=== PATIENT | male | born 1960 | race Caucasian/White ===

== ENCOUNTER 2024-02-08 13:57 | Outpatient (CLI) | payer OTHER, SELFPAY ==
--- NOTE | ~2024-02-08 | XR_ITS ---
XR hip BI 2V w AP pelvis Ordering provider: Marisa Yuen, PAC History: . M25.551 - Pain in right hip . Comparison: None. FINDINGS: BONES: No acute fracture or dislocation. HIP JOINT SPACES: Normal. SACROILIAC JOINT SPACES/LUMBAR SPINE: The sacroiliac joint spaces are normal. Mild degenerative baocn es of the visualized lower lumbar spine. PUBIC SYMPHYSIS: Normal. SOFT TISSUES: Normal. IMPRESSION: No acute osseous abnormality of the bilateral hips and pelvis. Reviewed, dictated and finalized at location A.
--- NOTE | ~2024-02-08 | XR_ITS ---
3 VIEWS LUMBAR SPINE Ordering provider: Marisa Yuen, PAC History: . BILATERAL HIP AND LOW BACK PAIN, NKI . Comparison: None. FINDINGS: VERTEBRAL BODIES: No visible fracture or subluxation. DISK SPACES: Narrowing of the disc L5-S1. SOFT TISSUES: Normal. Aortic calcifications. IMPRESSION: No acute osseous abnormality lumbar spine. Degenerative disc disease at the level of L5-S1. Reviewed, dictated and finalized at location A.
[2024-02-08 14:35] LABS: Basophils Absolute Auto 0.1 K/mm3 (0.0-0.1); Basophils Percent Auto 0.6 % (0.2-1.2); Eosinophils Absolute Auto 0.3 K/mm3 (0-0.3); Eosinophils Percent Auto 3.2 % (0-4.4); Hematocrit 43.2 % (42.0-52.0); Hemoglobin 15.5 g/dL (14.0-18.0); Immature Granulocyte Absolute 0.02 K/mm3 (0.00-0.031); Immature Granulocyte Percent A 0.3 % (0-0.5); Lymphocytes Absolute Auto 2.49 K/mm3 (0.9-3.2); Lymphocytes Percent Auto 31.8 % (18.3-44.2); Mean Corpuscular HGB Conc 35.9 g/dl (32-36); Mean Corpuscular Hemoglobin 32.7 pg (26-34); Mean Corpuscular Volume 91.1 fl (80-100); Mean Platelet Volume 9.4 fl (7.4-10.4); Monocytes Absolute Auto 0.8 K/mm3 (0.1-0.6); Monocytes Percent Auto 10.1 % (2.6-8.5); Neutrophils Absolute Auto 4.2 K/mm3 (1.3-6.7); Platelet Count Result 274 k/mm3 (150-375); Red Blood Count 4.74 M/mm3 (4.6-6.20); Red Cell Distribution Width 12.6 % (11.5-14.5); White Blood Count 7.8 K/mm3 (4.5-10.0)
[2024-02-08 14:54] LABS: LDL Cholesterol Direct 116 mg/dL
[2024-02-08 15:54] LABS: Alanine Aminotransferase 26 U/L (6-50); Albumin Level 4.4 g/dL (3.5-5.1); Alkaline Phosphatase 45 U/L (38-126); Anion Gap 10 mmol/L (4-12); Aspartate Amino Transferase 26 U/L (17-59); Bilirubin,Total 0.7 mg/dL (0.2-1.3); Blood Urea Nitrogen 17 mg/dL (9-20); Calcium 9.2 mg/dL (8.4-10.2); Carbon Dioxide 25 mmol/L (22-30); Chloride 97 mmol/L (98-107); Cholesterol 201 mg/dL (0-200); Estimated Glomerular Filt Rate > 60; Glucose 92 mg/dL (65-110); HDL Direct 58 mg/dL; Sodium 132 mmol/L (137-145); Triglycerides 89 mg/dL (<150)
[2024-02-08 16:11] LABS: Potassium 4.1 mmol/L (3.4-5.0)
== END 2024-02-08 13:58 | disposition home or self-care (01) ==
LOC: ANHLAB 13:59
PROVIDERS: PCP Family Medicine; Visit Provider Physician Assistant Medical
DX: E78.5 Hyperlipidemia, unspecified (principal); I10 Essential (primary) hypertension; Z12.5 Encounter for screening for malignant neoplasm of prostate; Z13.29 Encounter for screening for other suspected endocrine disorder; M25.551 Pain in right hip; M25.552 Pain in left hip; M54.50 Low back pain, unspecified
CPT/HCPCS: 36415; 72100; 73521; 80053; 80061; 84153; 84443; 85025; G0103

== ENCOUNTER 2024-03-30 07:59 | Outpatient (CLI) | payer OTHER, SELFPAY | END 2024-03-30 08:00 | disposition home or self-care (01) | LOC: ANHAUDIO 08:01 | PROVIDERS: PCP Family Medicine; Visit Provider Otolaryngology | DX: H90.0 Conductive hearing loss, bilateral (principal); Z90.89 Acquired absence of other organs; H74.23 Discontinuity and dislocation of ear ossicles, bilateral | CPT/HCPCS: 92557; 92567 ==

== ENCOUNTER 2024-08-18 02:08 | Day surgery (SDC) | payer OTHER, SELFPAY ==
[2024-08-10 10:11] VITALS: BMI 27.3
--- OUTSIDE RECORDS SUMMARY | 2024-08-18 02:11 | XMS_ITS | Clinical Summary ---
Author Organization [facility] Address Formerly [facility] [place] [address] Care Team Providers Care Billboard Installer Name Role Phone Unavailable Primary Care Provider Unavailabl e Social History Tobacco Use Types Packs/Day Years Used Date Smoking Tobacco: Never Assessed Sex and Gender Information Value Date Recorded Sex Assigned at Not on file Legal Sex Male 8:22 PM CDT Gender Identity Not on file Sexual Orientation Not on file Plan of Treatment Health Maintenance Due Date Last Done Comments Colorectal Cancer Screening Colonoscopy (10 Years) 1962 Annual Physical 1965 Hepatitis C 1980 DTaP, Tdap and Td Vaccines ( 1 - Tdap) 1981 Zoster Vaccines (1 of 2) 2012 COVID-19 Vaccine ( - 2023-2 5 season) 2024 Influenza Adult (#1) 2024 RSV Immunization or 60+ Years (1 - 1-dose 75+ series) 2037 Meningococcal B Vaccine Aged Out No l onger eligible based on patient's age to complete this topic Meningococcal Vaccine Aged Out No major celso eligible based on patient's age to complete this topic Pneumococcal Vaccine: Pediat rics (0 to 5 Years) and At-Risk Patients (6 to 64 Years) Aged Out No longer eligible b ased on patient's age to complete this topic RSV Immunizations Under 20 Months Aged Out No longer eligible based on patient's age to complete this topic
--- OUTSIDE RECORDS SUMMARY | 2024-08-18 02:11 | XMS_ITS | Referral Summary ---
Author Organization [facility] Address [address] [place] [phone] Care Team Providers Care Shampoo Technician Name Role Phone Marshall Mark MD Primary Care Provider [phone] Encounters Date Type Department Care Team Description 08/16/2024 10:20 AM CDT Office Visit [facility] Otolaryngology [address] [place] [address], [address] [address] Evans Ortiz MD Mixed conductive and sensorineural hearing loss, bilateral (Primary Dx); Eustachian tube dysfunction, bilateral 08/16/2024 9:30 AM CDT Procedure visit [facility] Otolaryngology [address] [place] [phone] Poonam Canseco Au.D. 07/27/2024 Documentation [facility] Otolaryngology [address] [place] [address] Medical Office Building [address] [place] [address] Zoraida Espinosa 06/28/2024 12:00 PM HAND NAILER Office Visit [facility] Otolaryngology [address] [place] [address], [address] [address] Evans Ortiz MD Mixed conductive and sensorineural hearing loss, bilateral (Primary Dx); Eustachian tube dysfunction, bilateral; Bilateral chronic otitis media 06/28/2024 11:40 AM HAND NAILER Procedure visit [facility] Otolaryngology [address] [place] [address], [address] [address] Mixed conductive and sensorineural hearing loss of both ears (Primary Dx) from Last 3 Months Allergies No known active allergies Medications lisinopriL (PRINIVIL,ZESTRI L) 10 mg tablet Take 1 tablet (10 mg total) by mouth daily 06/19/2024 Active Active Problems Problem Noted Date Diagnosed Date Mixed conductive and sensorineural hearing loss, bilateral 06/28/2024 Eustachian tube dysfunction, bilateral Bilateral chronic otitis media 06/28/2024 Social History Tobacco Use Types Packs/Day Years Used Date Smoking Tobacco: Never Assessed Sex and Gender Information Value Date Recorded Sex Assigned at Not on file Legal Sex Male 12:15 PM HAND NAILER Gender Identity Not on file Sexual Orientation Not on file Plan of Treatment Scheduled Procedures Name Priority Associated Diagnoses Date/Ti me IMPLANTATION OSSEOINTEGRATED HEARING DEVICE SUBCUTANEOUS. Conductive hearing loss of right ear with unrestricted hearing of left ear Procedures Procedure Name Priority Date/Time Associated Diagnosis Comments AUDBASE RESULTS 06/28/2024 11:54 AM HAND NAILER from Last 3 Months Results * AudBase Results (06/28/2024 11:54 AM HAND NAILER) Provider Scanning AUDIOLOGY SERVICES ORDERABLES Final Result from Last 3 Months Insurance [facility] CHOICE PLUS Care Teams Shampoo Technician Relationship Specialty Start Date End Date Marshall Mark MD [address] [place] [address] PCP - General Family Medicine 06/28/24
--- OUTSIDE RECORDS SUMMARY | 2024-08-18 02:11 | XMS_ITS | Clinical Summary ---
Author Organization [facility] Address Counts include 234 beds at the [facility] [place] [address] Care Team Providers Care Extended Insurance Clerk Name Role Phone Marshall Mark MD Primary Care Provider [phone] Allergies No known active allergies Medications lisinopriL (PRINIVIL,ZESTRI L) 10 mg tablet Take 1 tablet (10 mg total) by mouth daily 06/19/2024 Active Active Problems Problem Noted Date Diagnosed Date Mixed conductive and sensorineural hearing loss, bilateral 06/28/2024 Eustachian tube dysfunction, bilateral Bilateral chronic otitis media 06/28/2024 Encounters Date Type Department Care Team Description 08/16/2024 10:20 AM CDT Office Visit [facility] Otolaryngology [address] [place] [address], [facility] [address] [place] [address] Evans Ortiz MD Mixed conductive and sensorineural hearing loss, bilateral (Primary Dx); Eustachian tube dysfunction, bilateral 08/16/2024 9:30 AM CDT Procedure visit [facility] Otol[facility] [address] [place] [address] Poonam Canseco Au.D. 07/27/2024 Documentation [facility] Otolaryngology [address] [place] [address] Medical Office Building [address] [place] [address] oZraida Espinosa 06/28/2024 12:00 PM SLEEP TECHNICIAN Office Visit [facility] Otolaryngology [facility] [address] [place] [address] Evans Ortiz MD Mixed conductive and sensorineural hearing loss, bilateral (Primary Dx); Eustachian tube dysfunction, bilateral; Bilateral chronic otitis media 06/28/2024 11:40 AM SLEEP TECHNICIAN Procedure visit [facility]ology [address] [place] [address] Mixed conductive and sensorineural hearing loss of both ears (Primary Dx) from Last 3 Months Surgical History Surgery Date Site/Laterality Comments EAR SURGERY Medical History Medical History Date Comments Hypertension Social History Tobacco Use Types Packs/Day Years Used Date Smoking Tobacco: Never Assessed Sex and Gender Information Value Date Recorded Sex Assigned at Not on file Legal Sex Male 12:15 PM SLEEP TECHNICIAN Gender Identity Not on file Sexual Orientation Not on file Obstetrics History Plan of Treatment Scheduled Procedures Name Priority Associated Diagnoses Date/Ti me IMPLANTATION OSSEOINTEGRATED HEARING DEVICE SUBCUTANEOUS. Conductive hearing loss of right ear with unrestricted hearing of left ear Health Maintenance Due Date Last Done Comments Colon Cancer Screening-Colonoscopy 1962 Depression Screening 1962 Hepatitis C Screening 1962 Prostate Cancer Screening-PSA 1962 DTaP/Tdap/Td Vaccine (1 - Tdap) 1973 Hepatitis B Screening 1980 Regular Well Visit/Exam 18-64 1980 Zoster Vaccine (1 of 2) 2012 Influenza Vaccine (#1) 2024 Pneumococcal vaccine <65 Aged Out No longer eligible based on patient's age to complete this topic Procedures Procedure Name Priority Date/Time Associated Diagnosis Comments AUDBASE RESULTS 06/28/2024 11:54 AM SLEEP TECHNICIAN from Last 3 Months Results * AudBase Results (06/28/2024 11:54 AM SLEEP TECHNICIAN) Provider Scanning AUDIOLOGY SERVICES ORDERABLES Final Result from Last 3 Months Insurance [facility] CHOICE PLUS Care Teams Extended Insurance Clerk Relationship Specialty Start Date End Date Marshall Mark MD [address] [place] [address] PCP - General Family Medicine 06/28/24
[2024-08-18 12:20] VITALS: BP 122/75; PULSE 63; RESP 18; TEMP 36.7; O2SAT 100
[2024-08-18] MEDS: LACTATED RINGERS 1,000 ML 150 ML IV CONT (12:31)
--- NOTE | 2024-08-18 12:47 | P.PNAN_ITS ---
Anes - Initial Pre Proc Eval Procedure: Operation Date: 08/18/24 13:30 Proposed Procedures p Screening Colonoscopy - Margarito Jolly MD Date/Time: 08/18/24 12:47 Surgeon: Margarito Jolly MD Pre Op Diagnosis: Hx Colon Polyps Patient Data Age: 63 Gender: M Height: 1.78 m Weight: 87.6 kg Last Vital Signs Temp 36.7 C 08/18/24 12:20 Pulse 63 08/18/24 12:20 Resp 18 08/18/24 12:20 BP 122/75 08/18/24 12:20 Pulse Ox 100 08/18/24 12:20 O2 Del Method Room Air 08/18/24 12:20 Allergies Allergy/AdvReac Type Severity Reaction Status Date / Time No Known Allergies Allergy Verified 05/09/24 14:04 Home Medications ?Medication ?Instructions ?Recorded ?Confirmed ?Type lisinopril 10 mg tablet 10 mg PO DAILY #90 tabs 01/26/24 08/18/24 Rx ketoconazole 2 % topical cream 1 applic topical DAILY PRN rash 05/09/24 08/10/24 History triamcinolone acetonide 0.1 % 1 applic topical QID PRN rash 05/09/24 08/10/24 History topical cream esomeprazole magnesium 20 mg 20 mg PO DAILY 08/10/24 08/18/24 History capsule,delayed release (Nexium) Patient hx anesthesia problems: none Family hx anesthesia problems: none Results Review: All pre-operative results and documents have been reviewed as part of the pre- operative evaluation. [facility] Past Medical History Medical History BMI 29.0-29.9,adult Colon polyp Hyperlipidemia GERD (gastroesophageal reflux disease) Essential hypertension Family History Family History Grandparent Cerebrovascular accident Diabetes mellitus Father Family history of lung cancer Social History Social History Smoking status: Never smoker Alcohol intake: current Alcohol use details: A few drinks a week Substance use: never Substance use type: does not use Lack of Transportation: No Lack of Food: Never True Current Housing: I Have Housing Concerned About Future Housing: No Difficulty Paying Gas/Electric Bills: No Difficulty Paying for Meds: No Currently Unemployed: No Education: High School Diploma/GED Difficulty w/ Childcare or Family Care: No Living arrangements: with family Eric Hou Final PreProcedure Day of Procedure 08/18/24 12:47 Patient weight: overweight Heart: regular rate and rhythm Lungs: clear to auscultation Airway: Mallampati scale class II Neurological: alert and oriented Last oral intake: >/= 8 hours ASA classification: II Emergent: no Anesthetic plan: proceed Anesthesia type and monitoring: general GIVS and standard monitoring Results Review: All pre-operative results and documents have been reviewed as part of the pre- operative evaluation. Informed Consent: The patient's anesthetic plan and its attendant risks and benefits were discussed with the patient/family/POA. Questions were solicited and answers provided to the satisfaction of the patient/family/POA.
--- NOTE | 2024-08-18 13:13 | PM.HPGS ---
History of Present Illness History of Present Illness Consent: Risks, benefits, and alternatives have been discussed and questions answered. Patient agrees to proceed with procedure. Chief complaint: Hx Colon Polyps Narrative: Surendra Abdullahi is a 63 year old male with colon polyp 5-6 years ago Review of Systems Review of Systems: All systems reviewed & are unremarkable except as noted in HPI and below PMFSH Past Medical History Medical History BMI 29.0-29.9,adult Colon polyp Hyperlipidemia GERD (gastroesophageal reflux disease) Essential hypertension Family History Family History Grandparent Cerebrovascular accident Diabetes mellitus Father Family history of lung cancer Social History Social History Smoking status: Never smoker Alcohol intake: current Alcohol use details: A few drinks a week Substance use: never Substance use type: does not use Lack of Transportation: No Lack of Food: Never True Current Housing: I Have Housing Concerned About Future Housing: No Difficulty Paying Gas/Electric Bills: No Difficulty Paying for Meds: No Currently Unemployed: No Education: High School Diploma/GED Difficulty w/ Childcare or Family Care: No Living arrangements: with family Meds Home Medications and Allergies Home Medications ?Medication ?Instructions ?Recorded ?Confirmed ?Type lisinopril 10 mg tablet 10 mg PO DAILY #90 tabs 01/26/24 08/18/24 Rx ketoconazole 2 % topical cream 1 applic topical DAILY PRN rash 05/09/24 08/10/24 History triamcinolone acetonide 0.1 % 1 applic topical QID PRN rash 05/09/24 08/10/24 History topical cream esomeprazole magnesium 20 mg 20 mg PO DAILY 08/10/24 08/18/24 History capsule,delayed release (Nexium) Allergies Allergy/AdvReac Type Severity Reaction Status Date / Time No Known Allergies Allergy Verified 05/09/24 14:04 Vital Signs Vital Signs - 24 hr 08/18/24 12:20 Temperature 98.0 F Pulse Rate 63 Respiratory Rate 18 Blood Pressure 122/75 Pulse Oximetry 100 Oxygen Delivery Room Air Exam Const: General: comfortable and no acute distress HENMT: Face/Nose/Sinus: Normal nares present Eyes: General: appearance normal, both eyes and all related structures Neck: Neck: no JVD Resp: Auscultation: clear to auscultation bilaterally Cardio: Rate: regular rate Rhythm: regular rhythm GI: Inspection: non-distended GI Palp: Yes Soft to palpation Skin: General skin exam: normal color Neuro: General: gait normal Speech: normal speech Extrem: General: normal to inspection Psych: Mental Status: mental status grossly normal Assessment and Plan Assessment and plan (1) Colon polyp: Qualifiers: Colon polyp type: unspecified Colon location: unspecified part of colon Qualified Code(s): K63.5 - Polyp of colon Code(s): K63.5 - Polyp of colon Status: Acute Assessment and Plan: colonoscopy
[2024-08-18 13:31] VITALS: BP 94/63; PULSE 67; RESP 18; O2SAT 99
[2024-08-18 13:41] VITALS: BP 96/58; PULSE 61; RESP 17; O2SAT 100
[2024-08-18 13:51] VITALS: BP 104/68; PULSE 71; RESP 21; O2SAT 100
== END 2024-08-18 14:08 | disposition home or self-care (01) ==
PROVIDERS: PCP Family Medicine; Visit Provider Internal Medicine Gastroenterology
PROC: 0DJD8ZZ Inspection of Lower Intestinal Tract, Via Natural or Artificial Opening Endoscopic (ICD-10-PCS; CPT 45378; principal; 2024-08-18 13:30)
DX: Z12.11 Encounter for screening for malignant neoplasm of colon (principal); K63.5 Polyp of colon; K64.8 Other hemorrhoids; E78.5 Hyperlipidemia, unspecified; K21.9 Gastro-esophageal reflux disease without esophagitis; I10 Essential (primary) hypertension; Z80.1 Family history of malignant neoplasm of trachea, bronchus and lung; Z82.49 Family history of ischemic heart disease and other diseases of the circulatory system
CPT/HCPCS: 45380; 88305; J2003; J2704; J7120

== ENCOUNTER 2024-11-09 08:36 | Outpatient (CLI) | payer OTHER, SELFPAY ==
--- NOTE | ~2024-11-09 | US_ITS ---
Abdominal Sonogram: Real-time sonographic imaging of the abdomen was performed. Clinical History: Right upper quadrant pain Findings: The liver appears normal with no evidence of mass lesion or bile duct dilatation. Main por chepe vein demonstrates normal direction of flow. The spleen is normal in size without evidence of foca l lesion. The gallbladder is well distended, and appears normal with no evidence of gallstone or wal l thickening. The common bile duct measures 7 mm. The visualized pancreas, aorta, and IVC are unrema rkable. The right kidney measures 11.1 cm in length and the left kidney measures 10.8 cm. There is no hydronephrosis or renal calculus. Impression: Unremarkable abdominal ultrasound. Reviewed, dictated and finalized at location . Impression: Unremarkable abdominal ultrasound.
--- OUTSIDE RECORDS SUMMARY | 2024-11-09 08:59 | XMS_ITS | Clinical Summary ---
Author Organization [facility] Address [facility] [place] [address] Care Team Providers Care Dietary Aide Cook Name Role Phone Marshall Mark MD Primary Care Provider [phone] Allergies No known active allergies Medications lisinopriL (PRINIVIL,ZESTRI L) 10 mg tabletIndication s:hypertension Take 1 tablet (10 mg total) by mouth every morning [address] (NexIUM) 20 mg capsuleIndicatio ns:Stress Ulcer Prophylaxis Take 1 capsule (20 mg total) by mouth daily before breakfast Active HYDROcodone-acet aminophen (NORCO) 5-325 mg per tabletIndication s:Pain Take 1 tablet by mouth every 6 (six) hours as needed for pain (breakthrough pain) 15 tablet 5 Active amoxicillin (AMOXIL) 875 mg tablet Take 1 tablet (875 mg total) by mouth 2 (two) times a day for 5 days 10 tablet 5 11/06/19 25 Active Problems Problem Noted Date Diagnosed Date Mixed conductive and sensorineural hearing loss, bilateral 06/28/2024 Eustachian tube dysfunction, bilateral 5 Bilateral chronic otitis media 06/28/2024 Encounters Date Type Department Care Team Description 10/31/2024 1:45 PM CDT Anesthesia Event [facility] Operating Room [address] [facility] [place] [phone] Albino Medina MD Wiethuchter, Kelli P., NP 10/31/2024 1:35 PM CDT - 10/31/2024 3:10 PM CDT Surgery [facility] Operating Room [address] [facility] [place] [phone] Evans Ortiz MD IMPLANTATION OSSEOINTEGRATED HEARING DEVICE SUBCUTANEOUS. 10/31/2024 11:39 AM CDT - 10/31/2024 4:11 PM CDT Hospital Encounter [facility] Operating Room [address] [place] [phone] Evans Ortiz MD Mixed conductive and sensorineural hearing loss, bilateral [H90.6] (Primary Dx) Discharge Disposition: Discharge to home or self care 08/16/2024 10:20 AM CDT Office Visit [facility] Otolaryngology [address] [place] [address], [address] [address] Evans Ortiz MD Mixed conductive and sensorineural hearing loss, bilateral (Primary Dx); Eustachian tube dysfunction, bilateral 08/16/2024 9:30 AM CDT Procedure visit [facility] Otolaryngology [address] [place] [address], [address] [address] Poonam Canseco Au.D. Mixed conductive and sensorineural hearing loss, bilateral (Primary Dx) from Last 3 Months Surgical History Surgery Date Site/Laterality Comments EAR SURGERY multiple MASTOIDECTOMY Bilateral TYMPANOSTOMY TUBE PLACEMENT Bilateral unknown date ROTATOR CUFF REPAIR Right MENISCUS SURGERY Left early IMPLANTATION BONE ANCHORED HEARING AID 10/31/2024 Ear/Right Procedure: IMPLANTATION OSSEOINTEGRATED HEARING DEVICE SUBCUTANEOUS.; Surgeon: Evans Ortiz MD; Location: [facility] OPERATING ROOM; Service: Otolaryngology; Laterality: Right; Medical devices from this surgery are in the Medical Devices section. Medical History Medical History Date Comments Hypertension Sleep apnea mild, uses oral appliance Motion sickness Family History Medical History Relation Name Comments Anesthesia problems Neg Hx Social History Tobacco Use Types Packs/Day Years Used Date Smoking Tobacco: Never Smokeless Tobacco: Never Tobacco Cessation:Counseling Given: Not Answered AUDIT-C Answer Date Recorded Q1: How often do you have a drink containing alcohol? 4 or more times a week 10/31/2024 Q2: How many drinks containi ng alcohol do you have on a typical day when you are drinking? 1 or 2 Q3: How often do you have si x or more drinks on one occasion? Never 10/31/2024 Personal Safety Answer Date Recorded Have you ever been in or are you currently in a harmful physical or emotional relationship or is someone making you feel afraid or unsafe? Denies 10/31/2024 Sex and Gender Information Value Date Recorded Sex Assigned at Not on file Legal Sex Male 12:15 PM OVERSEAMER Gender Identity Not on file Sexual Orientation Not on file Obstetrics History Last Filed Vital Signs Vital Sign Reading Time Taken Comments Blood Pressure 121/62 10/31/2024 3:55 PM CDT Pulse 90 10/31/2024 4:00 PM CDT Temperature 36.2 C (97.2 F) 10/31/2024 3:15 PM CDT Respiratory Rate 19 10/31/2024 4:00 PM CDT Oxygen Saturation 96% 10/31/2024 4:00 PM CDT Inhaled Oxygen Concentration - - Weight 84.6 kg (186 lb 6.4 oz) 10/31/2024 12:10 PM CDT Height 177.8 cm (5' 10) 10/31/2024 12:10 PM CDT Body Mass Index 26.75 10/31/2024 12:10 PM CDT Plan of Treatment Health Maintenance Due Date Last Done Comments Colon Cancer Screening-Colonoscopy 1962 Depression Screening 1962 Hepatitis C Screening 1962 Prostate Cancer Screening-PSA 1962 DTaP/Tdap/Td Vaccine (1 - Tdap) 1973 Hepatitis B Screening 1980 Regular Well Visit/Exam 18-64 1980 Zoster Vaccine (1 of 2) 2012 Influenza Vaccine (Season Ended) 2025 Pneumococcal vaccine <65 Aged Out No longer eligible based on patient's age to complete this topic Goals Goal Patient Goal Type Associated Problems Recent Progress Patient-Stated? Author Autogenera simin Goal Care Plan Autogenerated Problem No Optime, Generic Login Medical Devices Implanted Type Area Side Framer Device Identifier Shelf Expiration Date Model / Serial / Lot Cochlear [employer] Hearing Aid Abutment Bone Anchored Auditory Osseointegrated 2 Stage Surgery System Baha 3mm [id number] - [id number] Implanted:Qty: 1 on 10/31/2024 by Evans Ortiz MD at [facility] [place] Right: Ear Cochle[employer] 06/13/2026 [id number] / / [id number] Cochlear [employer] Processor Hearing Device Osia Cochlear Implant [id number] - [id number] - [id number] Implanted:Qty: 1 on 10/31/2024 by Evans Ortiz MD at [facility] Right: Ear Cochlear [employer] 08/11/2026 [id number] / [id number] / Procedures Procedure Name Priority Date/Time Associated Diagnosis Comments HI AN PROCEDURE PLACEHOLDER Routine 10/31/2024 2:00 PM CDT HI AN ELECTIVE ENDOTRACHEAL AIRWAY Routine 10/31/2024 2:00 PM CDT IMPLANTATION OSSEOINTEGRATED HEARING DEVICE SUBCUTANEOUS. 10/31/2024 1:47 PM CDT Conductive hearing loss of right ear with unrestricted hearing of left ear from Last 3 Months Results * HI AN ELECTIVE ENDOTRACHEAL AIRWAY, HI AN PROCEDURE PLACEHOLDER (10/31/2024 2:00 PM CDT) Narrative Cinthia Warren CRNA - 10/31/2024 2:00 PM CDT Cinthia Warren CRNA 10/31/2024 2:00 PM Airway Patient location: OR Indications for airway management: anesthesia Difficult airway: no Staff: Placed by: COMPUTER NUMERICAL CONTROL GRINDER: Cinthia Warren CRNA Emergent airway documentation: Risks and benefits discussed: yes Consent obtained: yes Consent given by: patient Airway prep: Preoxygenated: yes Patient position: sniffing Mask difficulty assessment: 0 - not attempted Spontaneous ventilation during airway: absent Sedation level during airway: GA Final airway details: Final airway type: endotracheal airway Tube type: ETT ETT size: 7.5 mm Cuffed: yes Technique used for successful ETT placement: direct laryngoscopy Devices/Methods used in placement: intubating stylet Insertion site: oral Blade type: Juan Manuel Blade size: 4 Cormack-Lehane (direct): grade IIa - partial view of glottis Cuff volume: 7 mL Cuff inflated with: air ETT to lips: 23 cm Placement verified by: auscultation and CO2 detection Airway secured with: silk tape Number of attempts: 1 us Albino Medina MD ANESTHESIA ORDERABLES Kimberly l Result from Last 3 Months Additional Health Concerns Active Problems Noted Date Diagnosed Date Autogenerated Problem 10/31/2024 Insurance [facility] CHOICE PLUS [facility] CHOICE PLUS Member Subscriber Plan / Payer (Ef fective 2023-Present) Name:Surendra Abdullahi Relation to Subscriber:Self Name:Surendra Abudllahi Payer ID:[id number] (NAIC) Type:[facility] HMO/PPO Address: [place] [id number] Advance Directives For more information, please contact: [phone] Documents on File Type Date Recorded Patient General Duty Nurse Expl anation Power of Electrician'S Helper 10/31/2024 11:38 AM Care Teams Dietary Aide Cook Relationship Specialty Start Date End Date Marshall Mark MD [address] [place] [address] PCP - General Family Medicine 06/28/24
--- OUTSIDE RECORDS SUMMARY | 2024-11-09 08:59 | XMS_ITS | Referral Summary ---
Author Organization [facility] Address [address] [place] [address] Care Team Providers Care Regional Safety Manager Name Role Phone Marshall Mark MD Primary Care Provider Encounters Date Type Department Care Team Description 10/31/2024 1:35 PM CDT - 10/31/2024 3:10 PM CDT Surgery [facility] Operating Room [address] [place] [address] Evans Ortiz MD IMPLANTATION OSSEOINTEGRATED HEARING DEVICE SUBCUTANEOUS. 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 [facility], [address] [place] [address] Evans Ortiz MD Mixed conductive and sensorineural hearing loss, bilateral (Primary Dx); Eustachian tube dysfunction, bilateral 08/16/2024 9:30 AM CDT Procedure visit [facility] Otolaryngology [facility], [address] [place] [address] Poonam Canseco Au.D. 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 Author Autogenera simin Goal Care Plan Autogenerated Problem No Optime, Generic Login Medical Devices Implanted Type Area Unit Leader Device Identifier Shelf Expiration Date Model / Serial / Lot Cochlear [employer] Hearing Aid Abutment Bone Anchored Auditory Osseointegrated 2 Stage Surgery System Baha 3mm [id number] [id number] - [id number] Implanted:Qty: 1 on 10/31/2024 by Evans Ortiz MD at [facility] [place] Right: Ear Cochlear [employer] 06/13/2026 [id number] / / [id number] Cochlear [employer] Processor Hearing Device [employer]ia Cochlear Implant [id number] - [id number] - [id number] Implanted:Qty: 1 on 10/31/2024 by Evans Ortiz MD at [facility] Right: Ear Cochle[employer] 08/11/2026 [id number] / [id number] / Procedures Procedure Name Priority Date/Time Associated Diagnosis Comments PA AN PROCEDURE PLACEHOLDER Routine 10/31/2024 2:00 PM CDT PA AN ELECTIVE ENDOTRACHEAL AIRWAY Routine 10/31/2024 2:00 PM CDT IMPLANTATION OSSEOINTEGRATED HEARING DEVICE SUBCUTANEOUS. 10/31/2024 1:47 PM CDT Conductive hearing loss of right ear with unrestricted hearing of left ear from Last 3 Months Results * PA AN ELECTIVE ENDOTRACHEAL AIRWAY, PA AN PROCEDURE PLACEHOLDER (10/31/2024 2:00 PM CDT) Narrative Cinthia Warren CRNA - 10/31/2024 2:00 PM CDT Cinthia Warren CRNA 10/31/2024 2:00 PM Airway Patient location: OR Indications for airway management: anesthesia Difficult airway: no Staff: Placed by: ASSOCIATE MATERIAL HANDLER: Cinthia Warren CRNA Emergent airway documentation: Risks [...] Date Diagnosed Date Autogenerated Problem 10/31/2024 Insurance [facility] H[facility]PPO Address: [address] [address] [place] [address] [facility]/PPO Address: [address] [address] [place] [phone] Advance Directives For more information, please contact: [phone] Documents on File Type Date Recorded Patient Superintendent Power Expl anation Power of Director Social Service 10/31/2024 11:38 AM Care Teams Regional Safety Manager Relationship Specialty Start Date End Date Marshall Mark MD [address] [address] PCP - General Family Medicine 06/28/24
== END 2024-11-09 08:37 | disposition home or self-care (01) ==
PROVIDERS: PCP Family Medicine; Visit Provider Nurse Practitioner Family
DX: R10.11 Right upper quadrant pain (principal)
CPT/HCPCS: 76700